=== PATIENT | female | born 1935 | race Caucasian/White ===

== ENCOUNTER 2025-01-02 09:08 | Outpatient (AMB) | payer OTHER, SELFPAY ==
--- OUTSIDE RECORDS SUMMARY | 2023-11-04 07:00 | XMS_ITS ---
Author Organization [facility] Address [address] [address] Care Team Providers Care Credit And Collections Analyst Name Role Phone MINERVA SOLARES Primary Care Provider Fritz Hernandez Unavailable [phone] REASON FOR VISIT L Eye 11/13, R [...] Active Encounters Encounter Location Date Provider Diagnosis [facility] 294 [facility] [address] [place] [address] 11/04/2023 Fritz Hernandez Age-related osteoporosis without current [...] Provider Name:SUJATHA PALMA , 03/19/2025 10:30:00 AM, [address] [place] [address], [phone], Provider Name:SUJATHA PALMA , 05/09/2025 01:00:00 PM, [address] [place] [address], [phone], Progress Notes * SUJITMeaghan ADOB: [birth year] (89 yo F)Acc No.[id number]:11/04/2023 Progress Note Patient: Meaghan DE LOS SANTOS Appointment Provider: Coni Hernandez :1935 A ge:88 Y S ex:Female Date:11/04/2023 [facility] [address] [id number] Pcp:SUJATHA PALMA Subjective: * Chief Complaints: * [...] signature of Luz Elena Hernandez PA-C on 01/02/2025 at 10:25 AM EDT Sign off status: Pending * Appointment Provider: Coni Hernandez Date: 0 11/04/2023 Generated for Marcos call/Bi/Ashley on: 1 10:25 AM EDT History and Physical Notes * HPI (History [...]
--- NOTE | 2025-01-02 09:09 | A.OFFVIS_ITS ---
Vital Signs 3 01/02/25 09:13 Height 5 ft 1 in Weight 79 lb 5.863 oz BMI 15.0 BP 120/74 Blood Pressure Location Lt brachial Position Sitting Pulse 74 Pulse Source Pulse Oximeter Pulse Oximetry (%) 97 Oxygen Delivery Method Room Air Intake Visit Reasons: Shortness of breath Double End Sewer Required: No Accompanied by: Friend Allergies No Known Allergies Allergy (Verified 01/02/25 09:23) HPI Comments Details: The patient is here for pulmonary evaluation. The patient is an 81 year woman with a history of COPD presenting with worsening progressive dyspnea. Moderate severity. Even with minimal activity she gets very short of breath. She was given a prescription for Trelegy although was too expensive. She did not see any significant improvement. She did undergo a CT scan of the chest that I did evaluate from August 2024 from [place]. I did look at the images. Explained to her that she has extensive pulmonary fibrosis. Likely progressive. No significant ground-glass opacities. 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 As far as potential exposures denies any farm exposure or any significant bird exposures. The patient used to work as a teacher and denies any significant exposure to fumes or toxins. Denies any mold exposures. Denies any history of connective tissue disease in the family. She denies any rashes or joint pains other than osteoarthritis. Therefore unclear she has any secondary causes for the interstitial lung disease. At this time she is going to undergo blood work. We did go for a walking oximetry the patient did not qualify for oxygen which is reassuring. She was visibly dyspneic. The patient uses a cane. Otherwise she walked okay. The patient will undergo blood work in addition to having her try a course of prednisone. We did talk about antifibrotic agents that may be an option for her. Will follow-up in a couple months after her blood work and to see how she response to the prednisone. The patient also was not Trelegy in his too expensive so the Fasenra generic Wixela to the pharmacy that she can use instead. She will follow-up in a couple months if she has any issues prior to that she can always call for an earlier assessment. [facility] Medical History (Updated 01/02/25 @ 21:20 by Anastacio Cordova MD) COPD (chronic obstructive pulmonary disease) Pulmonary fibrosis Social History (Updated 01/02/25 @ 09:15 by Nicole Tate CMA) Patient Tobacco Use Status: Never used Tobacco Review of Systems Const Denies fever(s) Eyes Reports no additional complaints ENT Reports dry mouth Card Denies chest pain and Reports dyspnea on exertion Resp Reports dyspnea on exertion and Denies wheezing GI Reports no additional complaints Musc Reports myalgias Skin/Breast Denies rash Neuro Reports no additional complaints Psych Reports no additional complaints Endo Reports no additional complaints Chaim/Lymph Reports no additional complaints Aller/Immun Denies wheezing Physical Exam Vital Signs: Last Vital Signs Pulse 74 01/02/25 09:13 BP 120/74 01/02/25 09:13 Pulse Ox 97 01/02/25 09:13 Oxygen Delivery Method Room Air 01/02/25 09:13 BMI result Body Mass Index 15.0 Const General: comfortable Nutritional Appearance: thin and underweight Orientation/consciousness: patient oriented x3 HEENT Head: Yes normocephalic Neck Neck: Yes supple Chest Chest palpation & inspection: normal inspection of the chest Resp Effort & Inspection: normal respiratory effort Auscultation: rales and diminished lung sounds Cardio Heart sounds: S1 normal heart sound present and S2 normal heart sound present GI Palpation (GI): Soft to palpation Skin General skin exam: no rashes or lesions noted Neuro General: patient oriented x3 Extrem General: Yes clubbing, No cyanosis and No edema Results Reviewed Results Reviewed: Assessment & Plan Assessment & Plan (1) Pulmonary fibrosis: Code(s): J84.10 - Pulmonary fibrosis, unspecified Category: Medical (2) COPD (chronic obstructive pulmonary disease): Code(s): J44.9 - Chronic obstructive pulmonary disease, unspecified Category: Medical Qualifiers: COPD type: chronic bronchitis Chronic bronchitis type: simple Q ualified Code(s): J41.0 - Simple chronic bronchitis Plan Bloodwork Start Prednisone 10mg daily change Trelegy to Wixela Consider anti fibrotic agents F/U 6-8 weeks Orders: Orders 2 Basic Metabolic Panel Today J44.9 - Chronic obstructive pulmonary disease, unspecified, J84.10 - Pulmonary fibrosis, unspecified Angiotensin Converting Enzyme Today J44.9 - Chronic obstructive pulmonary disease, unspecified, J84.10 - Pulmonary fibrosis, unspecified Hypersensitive Pneumonitis Prf Today J44.9 - Chronic obstructive pulmonary disease, unspecified, J84.10 - Pulmonary fibrosis, unspecified, R91.8 - Other nonspecific abnormal finding of lung field ROBERTA Reflex Titer and Pattern Today J44.9 - Chronic obstructive pulmonary disease, unspecified, J84.10 - Pulmonary fibrosis, unspecified Erythrocyte Sedimentation Rate Today J44.9 - Chronic obstructive pulmonary disease, unspecified, J84.10 - Pulmonary fibrosis, unspecified Sjogren's Antibodies Today J44.9 - Chronic obstructive pulmonary disease, unspecified, J84.10 - Pulmonary fibrosis, unspecified Cyclic Citrullinated Peptide Today J44.9 - Chronic obstructive pulmonary disease, unspecified, J84.10 - Pulmonary fibrosis, unspecified Complete Blood Count Auto Diff Today J44.9 - Chronic obstructive pulmonary disease, unspecified, J84.10 - Pulmonary fibrosis, unspecified ANCA Vasculitides Today J44.9 - Chronic obstructive pulmonary disease, unspecified, J84.10 - Pulmonary fibrosis, unspecified Immunoglobulin E Today J44.9 - Chronic obstructive pulmonary disease, unspecified, J84.10 - Pulmonary fibrosis, unspecified Overnight Pulse Oximetry Today J44.9 - Chronic obstructive pulmonary disease, unspecified, J84.10 - Pulmonary fibrosis, unspecified Medications: New 2 prednisone 10 mg PO DAILY 30 tabs 2RF 30 days fluticasone propion-salmeterol 250-50 mcg/dose (Wixela Inhub) 1 inh inhalation Q12H 60 ea 11RF 30 days Coding Level of Care Code New Pt Level 5 (58958) Diagnoses Pulmonary fibrosis J84.10 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
[2025-01-02 09:13] VITALS: BP 120/74; PULSE 74; O2SAT 97; BMI 15.0
--- OUTSIDE RECORDS SUMMARY | 2025-01-02 10:26 | XMS_ITS | Patient Health Record ---
Author Organization [facility] Address [address] [place] [address] Care Team Providers Care Director [employer] Name Role Phone SUJATHA PALMA Primary Care Provider Fritz Hernandez Unavailable [phone] Allergies No Known Allergies Results Component Value Reference Range Notes 25-Hydroxyvitamin D LCMS D2+ [id number] Reviewed date:05/23/2024 03:09:34 PM Interpretation: Performing Lab:[facility] [place], [facility], Phone - [phone], Director - MDJodry Notes/Report: 25-Hydroxy, Vitamin D 34 Reference Range: All Ages: Target levels 30 - 100 25-Hydroxy, Vitamin D-2 <1.0 This test was developed and its performance characteristics determined by [facility]. It has not been cleared or approved by the Food and Drug Administration. 25-Hydroxy, Vitamin D-3 34 This test was developed and its performance characteristics determined by [facility]. It has not been cleared or approved by the Food and Drug Administration. Lipid Panel-[id number] Reviewed date:05/23/2024 03:09:39 PM Interpretation: Performing Lab:[facility], [facility], [place], Phone - [phone], Director - MDJodry Notes/Report: Cholesterol, Total 210 100-199 mg/dL Triglycerides 75 0-149 mg/dL HDL Cholesterol 69 >39 mg/dL VLDL Cholesterol Fredy 13 5-40 mg/dL LDL Chol Calc ([facility]) 128 0-99 mg/dL Comp. Metabolic Panel (14)-3 [id number] Reviewed date:05/23/2024 03:09:42 PM Interpretation: Performing Lab:[facility], [address] [place] [address], Phone - [phone], Director [facility] Notes/Report: Glucose 110 70-99 mg/dL BUN 16 8-27 mg/dL Creatinine 0.61 0.57-1.00 mg/dL eGFR 86 >59 mL/min/1.73 BUN/Creatinine Ratio 26 12-28 Sodium 139 134-144 mmol/L Potassium 4.2 3.5-5.2 mmol/L Chloride 99 96-106 mmol/L Carbon Dioxide, Total 24 20-29 mmol/L Calcium 10.1 8.7-10.3 mg/dL Protein, Total 7.8 6.0-8.5 g/dL Albumin 4.4 3.7-4.7 g/dL Globulin, Total 3.4 1.5-4.5 g/dL Bilirubin, Total 0.4 0.0-1.2 mg/dL Alkaline Phosphatase 76 44-121 IU/L AST (SGOT) 15 0-40 IU/L ALT (SGPT) 9 0-32 IU/L TSH+Free [id number] Reviewed date:05/23/2024 03:09:46 PM Interpretation: Performing Lab:[facility], [address] [place] [address], Phone - [phone], Director - [facility] Notes/Report: TSH 0.513 0.450-4.500 uIU/mL T4,Free([facility]) 1.98 0.82-1.77 ng/dL Comp. Metabolic Panel (14)-3 [id number] Reviewed date:08/14/2024 11:43:27 AM Interpretation: Performing Lab:[facility], [address] [place] [address], Phone - [phone], Director - MDdry Notes/Report: Glucose 112 70-99 mg/dL BUN 18 8-27 mg/dL Creatinine 0.57 0.57-1.00 mg/dL eGFR 87 >59 mL/min/1.73 BUN/Creatinine Ratio 32 12-28 Sodium 137 134-144 mmol/L Potassium 4.9 3.5-5.2 mmol/L Chloride 96 96-106 mmol/L Carbon Dioxide, Total 20 20-29 mmol/L Calcium 9.4 8.7-10.3 mg/dL Protein, Total 7.1 6.0-8.5 g/dL Albumin 4.0 3.7-4.7 g/dL Globulin, Total 3.1 1.5-4.5 g/dL Bilirubin, Total 0.3 0.0-1.2 mg/dL Alkaline Phosphatase 68 44-121 IU/L AST (SGOT) 16 0-40 IU/L ALT (SGPT) 10 0-32 IU/L [id number] Reviewed date:08/08/2024 09:04:11 AM Interpretation: Performing Lab:[facility], [address] [facility], [place], Phone - [phone], Director - Ana Notes/Report: NT-proBNP 65 0-738 pg/mL The following cut-points have been suggested for the use of proBNP for the diagnostic evaluation of heart failure (HF) in patients with acute dyspnea: . Modality Age Optimal Cut (years) Point Diagnosis (rule in HF) <50 450 pg/mL 50 - 75 900 pg/mL >75 1800 pg/mL Exclusion (rule out HF) Age independent 300 pg/mL CBC, Platelet, No Differenti al-[id number] Reviewed date:08/08/2024 09:04:44 AM Interpretation: Performing Lab:[facility], [address] [facility], [place], Phone - [phone], Director - Ana Notes/Report: WBC 9.3 3.4-10.8 x10E3/uL RBC 4.28 3.77-5.28 x10E6/uL Hemoglobin 13.4 11.1-15.9 g/dL Hematocrit 40.5 34.0-46.6 % MCV 95 79-97 fL MCH 31.3 26.6-33.0 pg MCHC 33.1 31.5-35.7 g/dL RDW 13.4 11.7-15.4 % Platelets 279 150-450 x10E3/uL Reason For Referral Reason History of COPD, non -smoker. We have ordered PFT. Please evaluate and treat Please evaluate and treat Diagnosis 1 Shortness of breath (R06.02) Referral Organization [facility] Referring Provider First Name Fritz Referring Provider Last Name Mary Referred Provider Specialty Pulmonology General Notes Please call the navdeep ent to schedule the appointment, Vinicius Chayo 08/06/2024 04:12:19 PM > Referral Priority Routine Medications Medication SIG (Take, Route, Frequency, Duration) Notes Start Date End Date Status Famotidine 20 MG 1 tablet at bedtime as needed Orally Once a day; Duration: 90 days 01/31/2023 Active Albuterol Sulfate HFA 108 (90 Base) MCG/ACT 1 puff as needed Inhalation every 4 hrs; Duration: 30 days 08/03/2024 Active Synthroid 75 MCG TAKE 1 TABLET ONCE DAILY INTHE MORNING ON AN EMPTY STOMACH; Duration: 90 Active Trelegy Ellipta 100-62.5-25 MCG/ACT 1 puff Inhalation twice a day; Duration: 30 days 08/03/2024 Active Protonix 40 MG 1 tablet Orally Once a day 01/31/2023 Not-Taking Fish Oil 1000 MG 4 capsule Orally Onc e a day 01/31/2023 Active Estradiol 0.1 MG/GM as directed Vaginal 3 times a week 01/31/2023 Not-Taking Ergocalciferol 50 MCG (2000 UT) 1 tablet Orally Once a day 01/31/2023 Not-Taking Ketoconazole 2 % 3 times a week Externally 3 times a week; Duration: 30 days 09/18/2024 Active Immunizations Vaccine Route Administration Date Status Comme nts COVID 19 Pfizer Unknown 04/13/2020 Administered COVID 19 Pfizer Unknown 05/06/2020 Administered COVID 19 Pfizer Unknown 01/05/2021 Administered COVID Pfizer Unknown 05/14/2021 Administered COVID-19 Pfizer Unknown 11/25/2021 Administered COVID-19 Pfizer Unknown 08/20/2022 Administered Pneumococcal conjugate PCV 13 Unknown 03/16/2017 Admini stered Pneumococcal polysaccharide PPV23 Unknown 11/24/2017 Ad ministered Social History Tobacco Use: Social History Observation Description Date Details (start date - stop date) Never Smoker NA - NA Tobacco Use/Smoking Question Answer Notes Are you a nonsmoker Problems Problem Type SNOMED Code ICD Code Onset Dates Problem Status W/U Status Risk Notes Problem Hypothyroidism (74074804) Hypothyroidism, unspecified (E03.9) Active confirmed Problem Mixed hyperlipidemia (646764111) Mixed hyperlipidemia (E78.2) Active confirmed Problem Hyperlipidemia (79079244) Hyperlipidemia, unspecified (E78.5) Active confirmed Problem Generalized anxiety disorder (78066168) Generalized anxiety disorder (F41.1) Active confirmed Problem Gastro-esophageal reflux disease without esophagitis (077692410) Gastro-esophageal reflux disease without esophagitis (K21.9) Active confirmed Problem Constipation (18412330) Constipation, unspecified (K59.00) Active confirmed Problem Age-related osteoporosis (046085999) Age-related osteoporosis without current pathological fracture (M81.0) Active confirmed Problem Postmenopausal atrophic vaginitis (85773986) Postmenopausal atrophic vaginitis (N95.2) Active confirmed Problem Abnormal gait (02772631) Other abnormalities of gait and mobility (R26.89) Active confirmed Problem Progressive fibrosing interstitial lung disease (disorder) (942882267676117) 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 diseases classified elsewhere (J84.170) Active confirmed Vital Signs Heart Rate 90 /min 09/18/2024 Temperature 98.2 degrees Fahrenheit 09/18/2024 Blood pressure diastolic 72 mm Hg 09/18/2024 Oximetry 96 % 09/18/2024 Height 5'1'' in 09/18/2024 Blood pressure systolic 100 mm Hg 09/18/2024 Weight 83.4 lbs 09/18/2024 BMI 15.76 kg/m2 09/18/2024 Encounters Encounter Location Date Provider Diagnosis [address] [address] 05/08/2024 SOLARES GUL Hypothyroidism, unspecified E03.9 ; Annual physical exam Z00.00 ; Hyperlipidemia, unspecified E78.5 ; Gastro-esophageal reflux disease without esophagitis K21.9 ; Postmenopausal atrophic vaginitis N95.2 and Age-related osteoporosis without current pathological fracture M81.[address] [address] 08/03/2024 Fritz Hernandez Shortness of breath R06.[address] [address] 09/18/2024 SOLAR[facility] GUL Hypothyroidism, unspecified E03.9 ; 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 diseases classified elsewhere J84.170 ; Constipation, unspecified K59.00 ; Seborrhea capitis L21.0 ; Mixed hyperlipidemia E78.2 ; Other abnormalities of gait and mobility R26.89 and Weight loss observed on examination R63.[address] [address] 08/07/2024 Fritz Hernandez 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 diseases classified elsewhere J84.[address] [address] 08/09/2024 Ghadeer Grantloum [address] [address] 10/12/2024 SOLARES GUL Shortness of breath R06.[address] [address] 12/20/2024 SOLARES GUL Shortness of breath R06.[address] [address] 12/20/2024 SOLARES GUL Shortness of breath R06.02 Assessments Encounter Date Diagnosis (ICD Code) Assessment Notes Treatment Notes Treatment Clinical Notes Section Notes 05/08/2024 Hypothyroidism, unspecified (ICD-10 - E03.9) Meaghan is 89 years old lady with hypothyroidism, generalized anxiety disorder, esophageal spasm, osteoporosis is here for annual physical. Plan is as follows Hypothyroidism. Continue on Synthroid 75 mcg daily and check TSH/T4. GERD/esophageal spasm. Encouraged to take famotidine 20 mg 1 tablet daily and dietary modifications discussed. Generalized anxiety disorder. PHQ 9 is 0. Osteoporosis. She is not a candidate for bisphosphonates because of acid reflux. Advised to take ynxe-apm-lhhmncb vitamin D3 2000 international units and supplement diet with calcium. Atrophic vaginitis. She uses Estradiol 0.1 mg cream 3 times a week EKG is normal sinus rhythm at 72 [address]pm with no acute ST or T wave changes, no bundle branch blocks, normal intervals Screening blood work ordered. She Will have updated pneumonia and shingles vaccine. She is full code and her grand nephew Bladimir Frausto for number [phone] is her healthcare proxy. MOLST form discussed with patient 05/08/2024 Annual physical exam (ICD-10 - Z00.00) Meaghan is 89 years old lady with hypothyroidism, generalized anxiety disorder, esophageal spasm, osteoporosis is here for annual physical. Plan is as follows Hypothyroidism. Continue on Synthroid 75 mcg daily and check TSH/T4. GERD/esophageal spasm. Encouraged to take famotidine 20 mg 1 tablet daily and dietary modifications discussed. Generalized anxiety disorder. PHQ 9 is 0. Osteoporosis. She is not a candidate for bisphosphonates because of acid reflux. Advised to take hrpv-dok-dqjweuu vitamin D3 2000 international units and supplement diet with calcium. Atrophic vaginitis. She uses Estradiol 0.1 mg cream 3 times a week EKG is normal sinus rhythm at 72 bpm with no acute ST or T wave changes, no bundle branch blocks, normal intervals Screening blood work ordered. She Will have updated pneumonia and shingles vaccine. She is full code and her grand nephew Bladimir Frausto for number [phone] is her healthcare proxy. MOLST form discussed with patient 08/03/2024 Shortness of breath (ICD-10 - R06.02) Mrs Troncoso is an 89-year-old lady with GERD, hypothyroidism, VERO and osteopenia, mild esophageal spasm here for here today for COPD. Plan as follows Shortness of breath. GERD, she has done barium swallow and CAT scans in the past which did show fibrotic changes in the lying and findings were consistent with COPD. She is a non-smoker. She admits to progressive shortness of breath especially with activity and it tends to be better at rest. She also mentions that she has been experiencing a dry cough. She denies any chest pain, palpitation, orthopnea or change in her weight. We have done the walking test in the office today with oxygen level remaining the same level of 95 on heart rate fluctuating between 91 and 93 without significant changes, No concern for PE. EKG is done in the office today with heart rate of 85 bpm, sinus rhythm. No ST elevation or depression are noted. Vital signs are within normal limits in the office. Lungs are clear to auscultation bilateral. She is able to speak in full sentences. We will obtain CBC, comp, BNP for further workup and rule out any abnormalities. It did mention in the past that she does have cardiomegaly thus we will get an echo of the heart. We will get a chest x-ray to rule out any pneumonia, pleural effusion. We will also get PFTs given history of possible COPD I have also referred patient to a ladies' locker room attendant. I will also start patient on albuterol to be taken as needed maintenance inhaled corticosteroid. Possible side effects have been discussed and directions on how to use the medication has been given. General concerns have been discussed I have rendered the services for this patient under direct supervision of Dr. Palma, who did not see the patient but was available upon request 08/07/2024 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 diseases classified elsewhere (ICD-10 - J84.170) 09/18/2024 Hypothyroidism, unspecified (ICD-10 - E03.9) Mrs Troncoso is an 89-year-old lady with GERD, hypothyroidism, VERO and osteopenia, mild esophageal spasm, interstitial lung disease, COPD is here for follow-up. COPD/interstitial lung disease. Stable and oxygen saturations are 96% on room air. Continue on Trilegy 100 mcg and albuterol inhaler as needed. Hypothyroidism. Last TSH/T4 was normal and she is on levothyroxine 75 mcg daily. Weight loss. Differential is loss of muscle mass and bone mass. Advise small meals during the day and high-protein diet and stay hydrated. Impaired fasting glucose. Try to decrease carbohydrate intake and increase protein intake as discussed. Gait instability. She uses a cane to walk and no history of falls. Encouraged to do exercises at her facility. Secondly she lives by herself and we recommended that she should have a [employer] a few hours a week to help her with activities of daily living and we will arrange intake. Constipation. Stay hydrated and she can use tvla-nhz-mmqfelb Metamucil 1 tablespoon daily. Mixed hyperlipidemia. Dietary restrictions and she is not a candidate for statins. Seborrhea. She will be given prescription for ketoconazole shampoo 2-3 times a week. Screening blood work reviewed. 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 COPD/interstitial lung disease. Stable and oxygen saturations are 96% on room air. Continue on Trilegy 100 mcg and albuterol inhaler as needed. Hypothyroidism. Last TSH/T4 was normal and she is on levothyroxine 75 mcg daily. Weight loss. Differential is loss of muscle mass and bone mass. Advise small meals during the day and high-protein diet and stay hydrated. Impaired fasting glucose. Try to decrease carbohydrate intake and increase protein intake as discussed. Gait instability. She uses a cane to walk and no history of falls. Encouraged to do exercises at her facility. Secondly she lives by herself and we recommended that she should have a [employer] a few hours a week to help her with activities of daily living and we will arrange intake. Constipation. Stay hydrated and she can use tzaf-zdh-tffckea Metamucil 1 tablespoon daily. Mixed hyperlipidemia. Dietary restrictions and she is not a candidate for statins. Seborrhea. She will be given prescription for ketoconazole shampoo 2-3 times a week. Screening blood work reviewed. 09/18/2024 Constipation, unspecified (ICD-10 - K59.00) Mrs Troncoso is an 89-year-old lady with GERD, hypothyroidism, VERO and osteopenia, mild esophageal spasm, interstitial lung disease, COPD is here for follow-up. COPD/interstitial lung disease. Stable and oxygen saturations are 96% on room air. Continue on Trilegy 100 mcg and albuterol inhaler as needed. Hypothyroidism. Last TSH/T4 was normal and she is on levothyroxine 75 mcg daily. Weight loss. Differential is loss of muscle mass and bone mass. Advise small meals during the day and high-protein diet and stay hydrated. Impaired fasting glucose. Try to decrease carbohydrate intake and increase protein intake as discussed. Gait instability. She uses a cane to walk and no history of falls. Encouraged to do exercises at her facility. Secondly she lives by herself and we recommended that she should have a [employer] a few hours a week to help her with activities of daily living and we will arrange intake. Constipation. Stay hydrated and she can use crho-egt-bkqmslh Metamucil 1 tablespoon daily. Mixed hyperlipidemia. Dietary restrictions and she is not a candidate for statins. Seborrhea. She will be given prescription for ketoconazole shampoo 2-3 times a week. Screening blood work reviewed. 05/08/2024 Hyperlipidemia, unspecified (ICD-10 - E78.5) Meaghan is 89 years old lady with hypothyroidism, generalized anxiety disorder, esophageal spasm, osteoporosis is here for annual physical. Plan is as follows Hypothyroidism. Continue on Synthroid 75 mcg daily and check TSH/T4. GERD/esophageal spasm. Encouraged to take famotidine 20 mg 1 tablet daily and dietary modifications discussed. Generalized anxiety disorder. PHQ 9 is 0. Osteoporosis. She is not a candidate for bisphosphonates because of acid reflux. Advised to take xovk-rhu-osomenk vitamin D3 2000 international units and supplement diet with calcium. Atrophic vaginitis. She uses Estradiol 0.1 mg cream 3 times a week EKG is normal sinus rhythm at [address]pm with no acute [address] or T wave changes, no bundle branch blocks, normal intervals Screening blood work ordered. She Will have updated pneumonia and shingles vaccine. She is full code and her grand nephew Bladimir Frausto for number [phone] is her healthcare proxy. MOLST form discussed with patient 05/08/2024 Gastro-esophageal reflux disease without esophagitis (ICD-10 - K21.9) Meaghan is 89 years old lady with hypothyroidism, generalized anxiety disorder, esophageal spasm, osteoporosis is here for annual physical. Plan is as follows Hypothyroidism. Continue on Synthroid 75 mcg daily and check TSH/T4. GERD/esophageal spasm. Encouraged to take famotidine 20 mg 1 tablet daily and dietary modifications discussed. Generalized anxiety disorder. PHQ 9 is 0. Osteoporosis. She is not a candidate for bisphosphonates because of acid reflux. Advised to take vgwf-ufb-kkwkdkp vitamin D3 2000 international units and supplement diet with calcium. Atrophic vaginitis. She uses Estradiol 0.1 mg cream 3 times a week EKG is normal sinus rhythm at 72 bpm with no acute [address] or T wave changes, no bundle branch blocks, normal intervals Screening blood work ordered. She Will have updated pneumonia and shingles vaccine. She is full code and her grand nephew Bladimir Frausto for number [phone] is her healthcare proxy. MOLST form discussed with patient 09/18/2024 Seborrhea capitis (ICD-10 - L21.0) Mrs Troncoso is an 89-year-old lady with GERD, hypothyroidism, VERO and osteopenia, mild esophageal spasm, interstitial lung disease, COPD is here for follow-up. COPD/interstitial lung disease. Stable and oxygen saturations are 96% on room air. Continue on Trilegy 100 mcg and albuterol inhaler as needed. Hypothyroidism. Last TSH/T4 was normal and she is on levothyroxine 75 mcg daily. Weight loss. Differential is loss of muscle mass and bone mass. Advise small meals during the day and high-protein diet and stay hydrated. Impaired fasting glucose. Try to decrease carbohydrate intake and increase protein intake as discussed. Gait instability. She uses a cane to walk and no history of falls. Encouraged to do exercises at her facility. Secondly she lives by herself and we recommended that she should have a [employer] a few hours a week to help her with activities of daily living and we will arrange intake. Constipation. Stay hydrated and she can use jvuh-hsh-zmvwwri Metamucil 1 tablespoon daily. Mixed hyperlipidemia. Dietary restrictions and she is not a candidate for statins. Seborrhea. She will be given prescription for ketoconazole shampoo 2-3 times a week. Screening blood work reviewed. 05/08/2024 Postmenopausal atrophic vaginitis (ICD-10 - N95.2) Meaghan is 89 years old lady with hypothyroidism, generalized anxiety disorder, esophageal spasm, osteoporosis is here for annual physical. Plan is as follows Hypothyroidism. Continue on Synthroid 75 mcg daily and check TSH/T4. GERD/esophageal spasm. Encouraged to take famotidine 20 mg 1 tablet daily and dietary modifications discussed. Generalized anxiety disorder. PHQ 9 is 0. Osteoporosis. She is not a candidate for bisphosphonates because of acid reflux. Advised to take mnxc-shd-xurlovt vitamin D3 2000 international units and supplement diet with calcium. Atrophic vaginitis. She uses Estradiol 0.1 mg cream 3 times a week EKG is normal sinus rhythm at 72 [address]pm with no acute [address] or T wave changes, no bundle branch blocks, normal intervals Screening blood work ordered. She Will have updated pneumonia and shingles vaccine. She is full code and her grand nephew Bladimir Frausto for number [phone] is her healthcare proxy. MOLST form discussed with patient 09/18/2024 Mixed hyperlipidemia (ICD-10 - E78.2) Mrs Troncoso is an 89-year-old lady with GERD, hypothyroidism, VERO and osteopenia, mild esophageal spasm, interstitial lung disease, COPD is here for follow-up. COPD/interstitial lung disease. Stable and oxygen saturations are 96% on room air. Continue on Trilegy 100 mcg and albuterol inhaler as needed. Hypothyroidism. Last TSH/T4 was normal and she is on levothyroxine 75 mcg daily. Weight loss. Differential is loss of muscle mass and bone mass. Advise small meals during the day and high-protein diet and stay hydrated. Impaired fasting glucose. Try to decrease carbohydrate intake and increase protein intake as discussed. Gait instability. She uses a cane to walk and no history of falls. Encouraged to do exercises at her facility. Secondly she lives by herself and we recommended that she should have a [employer] a few hours a week to help her with activities of daily living and we will arrange intake. Constipation. Stay hydrated and she can use pcxi-kvu-guboxta Metamucil 1 tablespoon daily. Mixed hyperlipidemia. Dietary restrictions and she is not a candidate for statins. Seborrhea. She will be given prescription for ketoconazole shampoo 2-3 times a week. Screening blood work reviewed. 09/18/2024 Other abnormalities of gait and mobility (ICD-10 - R26.89) Mrs Troncoso is an 89-year-old lady with GERD, hypothyroidism, VERO and osteopenia, mild esophageal spasm, interstitial lung disease, COPD is here for follow-up. COPD/interstitial lung disease. Stable and oxygen saturations are 96% on room air. Continue on Trilegy 100 mcg and albuterol inhaler as needed. Hypothyroidism. Last TSH/T4 was normal and she is on levothyroxine 75 mcg daily. Weight loss. Differential is loss of muscle mass and bone mass. Advise small meals during the day and high-protein diet and stay hydrated. Impaired fasting glucose. Try to decrease carbohydrate intake and increase protein intake as discussed. Gait instability. She uses a cane to walk and no history of falls. Encouraged to do exercises at her facility. Secondly she lives by herself and we recommended that she should have a [employer] a few hours a week to help her with activities of daily living and we will arrange intake. Constipation. Stay hydrated and she can use grux-qgt-vyoxwnz Metamucil 1 tablespoon daily. Mixed hyperlipidemia. Dietary restrictions and she is not a candidate for statins. Seborrhea. She will be given prescription for ketoconazole shampoo 2-3 times a week. Screening blood work reviewed. 05/08/2024 Age-related osteoporosis without current pathological fracture (ICD-10 - M81.0) Meaghan is 89 years old lady with hypothyroidism, generalized anxiety disorder, esophageal spasm, osteoporosis is here for annual physical. Plan is as follows Hypothyroidism. Continue on Synthroid 75 mcg daily and check TSH/T4. GERD/esophageal spasm. Encouraged to take famotidine 20 mg 1 tablet daily and dietary modifications discussed. Generalized anxiety disorder. PHQ 9 is 0. Osteoporosis. She is not a candidate for bisphosphonates because of acid reflux. Advised to take bxid-pme-gbxgmmt vitamin D3 2000 international units and supplement diet with calcium. Atrophic vaginitis. She uses Estradiol 0.1 mg cream 3 times a week EKG is normal sinus rhythm at 72 bpm with no acute ST or T wave changes, no bundle branch blocks, normal intervals Screening blood work ordered. She Will have updated pneumonia and shingles vaccine. She is full code and her grand nephew Bladimir Frausto for number [phone] is her healthcare proxy. MOLST form discussed with patient 09/18/2024 Weight loss observed on examination (ICD-10 - R63.4) Mrs Troncoso is an 89-year-old lady with GERD, hypothyroidism, VERO and osteopenia, mild esophageal spasm, interstitial lung disease, COPD is here for follow-up. COPD/interstitial lung disease. Stable and oxygen saturations are 96% on room air. Continue on Trilegy 100 mcg and albuterol inhaler as needed. Hypothyroidism. Last TSH/T4 was normal and she is on levothyroxine 75 mcg daily. Weight loss. Differential is loss of muscle mass and bone mass. Advise small meals during the day and high-protein diet and stay hydrated. Impaired fasting glucose. Try to decrease carbohydrate intake and increase protein intake as discussed. Gait instability. She uses a cane to walk and no history of falls. Encouraged to do exercises at her facility. Secondly she lives by herself and we recommended that she should have a RESEARCH CENTER PARTNER a few hours a week to help her with activities of daily living and we will arrange intake. Constipation. Stay hydrated and she can use cjjp-vsg-jcogegr Metamucil 1 tablespoon daily. Mixed hyperlipidemia. Dietary restrictions and she is not a candidate for statins. Seborrhea. She will be given prescription for ketoconazole shampoo 2-3 times a week. Screening blood work reviewed. Plan Of Treatment Pending Test Test Name Order Date Echocardiogram 08/03/2024 PFTS with DLCO 08/03/2024 CT Chest WO 08/07/2024 Xray: Chest-Standard Frontal & Lat 08/03 Next Appt Details Provider Name:SOLARESREGINALDO PALMA , 03/19/2025 10:30:00 AM, [address] [place] [address], [place], [address], Provider Name:SOLARESREGINALDO PALMA , 05/09/2025 01:00:00 PM, [address] [place] [address], [place], [address], Insurance Providers Payer Name Payer Address Payer Phone Subscriber Number Group Number Insured Name Patient Relationship to Insured Coverage Start Date Coverage End Date [facility] Insurance ([facility]) [address] [place] [id number] Meaghan Troncoso Self - patient is the insured Medical (General) History Medical History History ICD Code GERD Osteopenia PMR OA Multiple joints VERO COPD Surgical History Surgery Date(Month/Year) tonsillectomy laminectomy by Dr. Lopez
--- OUTSIDE RECORDS SUMMARY | 2025-01-02 10:26 | XMS_ITS | Continuity of Care Document ---
Author Organization [facility] Address [address] [place] [address] Phone [phone] Care Team Providers Care University Relations Director Name Role Phone Kya Negrete M.D. Care Team Information Receiv er [phone] Problems Active Problems Provider Date Hypothyroidism Teodora Reyes M.D. Ons et: 12/02/2022 Osteopenia Teodora Reyes M.D. Ons et: 12/02/2022 Gastroesophageal reflux disease Teodora Harman M.D. Onset: 12/02/2022 Osteoarthritis Teodora Reyes M.D. Ons et: 12/02/2022 Spinal stenosis Teodora Reyes M.D. Ons et: 12/02/2022 Dyslipidemia Teodora Reyes M.D. Ons et: 12/02/2022 Psoriasis Teodora Reyes M.D. Ons et: 12/02/2022 Chronic depression Teodora Reyes M.D. Onset: 12/02/2022 Social History Type Date Description Comments Sex Female Sex Unknown Lives With Alone Work Status Retired ETOH Use Consumes 1 glass of wine per day Tobacco Use Start: Unknown Patient has never smoked Allergies and adverse reactions Active Allergies Criticality Reaction Severity Comments Date Aspirin Unable to assess criticality internal hemmorhag e 12/02/2022 Statins Unable to assess criticality myalgias 12/02/2022 Chloramphenicol Unable to assess criticality 12/02/2022 Medications Active Medications SIG Qnty Indications Ordering Provider Date [id number] Tablets Take 1 tablet by mouth Tue, 2 tablets on Tuesday 102tabs Teodora Reyes M.D. Calcium 5329001(600Ca) mg Tablets Take 1 tablet by mouth every other day Teodora Reyes M.D. Vitamin L974vxk (1000 Ut) Capsules Take 1 tablet by mouth every day 100caps Teodora Reyes M.D. Fish [id number] Capsules 1 by mouth once a day Teodora Reyes M.D. Estradiol0.1mg/GM Cream 2 x week Teodora Reyes M.D. Vital Signs Date Vital Result Comment 12/02/2022 11:56am BP Systolic 144 mmHg BP Diastolic 80 mmHg Results Test Acquired Date Facility Test Result H/L Range Note TSH With Reflex To FT4 12/02/2022 [facility] TSH With Reflex To FT4 4.54 uIU/mL High (0.4-4.2 ) Free T4 12/02/2022 [facility] Free T4 1.34 ng/dL (0.70-1. 80) Complete Abc With Diff 02/18/2022 [facility] WBC 7.7 K/MM3 (4.0-11. 0) RBC 4.37 M/MM3 (4.20-5. 40) HGB 13.4 GM/DL (11.7-15 .5) HCT 42.1 % (35.7-45 .8) MCV 96.3 FL (80.0-10 0.0) MCH 30.7 pg (27.0-34 .0) MCHC 31.8 g/dL Low (33.0-37 .0) PLT 290 K/MM3 (150-460 ) RDW-SD 47.1 FL High (<47.0) MPV 9.9 FL (9.4-12. 4) Automated NRBC 0.0 #/100WBC' S Abs. NRBC 0.0 K/MM3 Neut # 5.3 K/MM3 (1.3-7.0 ) Lymph # 1.7 K/MM3 (0.8-3.1 ) Whatcom# 0.5 K/MM3 (0.4-0.9 ) Eo # 0.1 K/MM3 (0.0-0.4 ) Baso # 0.1 K/MM3 (0.0-0.1 ) Abs. Imm Gran 0.0 K/MM3 Neut 68.5 % (44-76) Lymph 22.2 % (15-43) Monocyte 7.0 % (4.5-10. 5) Eo 1.2 % (0-6) Baso 0.8 % (0-2) Imm Gran 0.3 % Sedimentation Rate,Automated 02/18/2022 [facility] Sedimentation Rate,Automated 22 MM/HR High (0-20) Comprehensive Metabolic Panl 02/18/2022 [facility] Glucose 94 mg/dL (70-99) BUN 14 mg/dL (8-23) Creatinine 0.6 mg/dL (0.5-1.0 ) Sodium 141 mmol/L (133-145 ) Potassium 4.2 mmol/L (3.6-5.2 ) Chloride 103 mmol/L (98-107) Bicarbonate 28 mmol/L (22-29) Anion Gap 10 (4-17) Albumin 4.6 GM/DL (3.4-4.8 ) Calcium 9.8 mg/dL (8.6-10. 5) Bilirubin,Total 0.2 mg/dL (0-1.2 ) Total Protein 7.6 GM/DL (6.2-8.2 ) Ag Ratio 1.5 Ast 18 U/L (0-32) Alk Phos 69 U/L (35-104) Alt 12 U/L (0-33) Estimated GFR Creatinine 87 ML/MIN/1. 73M2 1 C-Reactive Protein 02/18/2022 [facility] C-Reactive Protein 0.3 mg/dL (0-0.5) Thyroid Panel 02/18/2022 [facility] Free T4 1.51 ng/dL (0.70-1. 80) TSH 1.86 uIU/mL (0.4-4.2 ) 25Oh Vitamin D 02/18/2022 [facility] 25Oh Vitamin D 43.1 NG/ML (20-50) 1 Creatinine based est imated glomerular filtration (eGFR) in adults is calculated using the National Kidney Foundation recommended 2020 CKD-EPI equation. Estimates GFR from serum creatinine, age and sex. Procedures Date Code Description Status 12/02/2022 58582 Collection Of Venous Blood B y Venipuncture Completed 09/04/2021 98868 Collection Of Capillary Bloo d Specimen Completed Medical Devices Description No Information Available Encounters Type Date Location Provider Dx Diagnosis Office Visit 12/02/2022 10:15a Main Office Teodora Reyes M.D. E03.9 Hypothyroidism, unspecified Assessments Date Code Description Provider 12/02/2022 E03.9 Hypothyroidism, unspecified Teodora Reyes M.D. Plan of Treatment No Information Available Functional Status Description No Information Available Mental Status Description No Information Available Referrals Description No Information Available
== END 2025-01-02 09:55 | disposition home or self-care (01) ==
LOC: HO.HPS 09:09
PROVIDERS: Visit Provider Hospitalist
DX: J84.10 Pulmonary fibrosis, unspecified (principal); J41.0 Simple chronic bronchitis
CPT/HCPCS: 99205

== ENCOUNTER 2025-01-02 09:08 | Outpatient (REF) | payer OTHER, SELFPAY ==
[2025-01-02 10:27] LABS: MANUAL DIFF FLAG NO
[2025-01-02 10:46] LABS: Hematocrit 41.8 % (37.0-47.0); Hemoglobin 13.6 g/dl (12.0-16.0); Imm Gran Abs Auto 0.02 X10*3/uL (0.00-0.03); Imm Gran Pct Auto 0.2 % (0.0-0.4); Lymphocytes Absolute Auto 1.0 X10*3/uL (1.2-4.9); Mean Corpuscular HGB Conc 32.5 g/dl (31.0-35.0); Mean Corpuscular Hemoglobin 30.9 pg (27.0-33.0); Mean Corpuscular Volume 95.0 fL (80.0-98.0); NRBC Abs Auto 0.000 X10*3/uL (0.0-0.012); NRBC Pct Auto 0.0 /100WBC (0.0-0.2); Platelet Count 313 X10*3/uL (160-400); Red Blood Count 4.40 X10*6/uL (4.20-5.50); White Blood Count 8.3 X10*3/uL (4.8-10.8)
[2025-01-02 11:08] LABS: Anion Gap 10 (12-20); Blood Urea Nitrogen 17 mg/dL (9-16); Calcium 9.7 mg/dL (8.4-10.2); Carbon Dioxide 30 mmol/L (22-29); Chloride 101 mmol/L (96-108); Estimated Glomerular Filt Rate > 60; Potassium 4.0 mmol/L (3.3-5.1); Sodium 137 mmol/L (135-145)
[2025-01-04 09:37] LABS: Antibody to SS-A Antigen <1.0 NEG AI (<1.0 NEG); Antibody to SS-B Antigen 1.1 POS AI (<1.0 NEG); Proteinase 3 PR3 Antibodies <1.0 AI
[2025-01-10 13:18] LABS: Anti Nuclear Antibody Screen POSITIVE (NEGATIVE); Anti Nuclear Antibody Titer 1:40 titer
[2025-01-10 14:59] LABS: Asperg fumigatus Precip Abs POSITIVE (NEGATIVE); Micropoly faeni Abs NEGATIVE (NEGATIVE); Saccharo pora viridis Abs NEGATIVE (NEGATIVE); Thermo candidus Abs NEGATIVE (NEGATIVE)
== END 2025-01-02 09:09 | disposition home or self-care (01) ==
LOC: HO.LAB 09:08
PROVIDERS: Visit Provider Hospitalist
DX: J84.10 Pulmonary fibrosis, unspecified (principal); J44.9 Chronic obstructive pulmonary disease, unspecified; R91.8 Other nonspecific abnormal finding of lung field
CPT/HCPCS: 36415; 80048; 82164; 82785; 85025; 85652; 86021; 86038; 86039; 86200; 86235; 86331; 86606; 86609

== ENCOUNTER 2025-03-01 13:50 | Outpatient (AMB) | payer OTHER, SELFPAY ==
--- OUTSIDE RECORDS SUMMARY | 2023-11-04 06:00 | XMS_ITS ---
Author Organization [facility] Address [address] [address] Care Team Providers Care Alum Plant Supervisor Name Role Phone MINERVA SOLARES Primary Care Provider [phone] Fritz Hernandez Unavailable [phone] REASON FOR VISIT L Eye 11/13, R eye 11/22 Medications Medication SIG (Take, Route, Frequency, Duration) Notes Start Date End Date Status Fish Oil 1000 MG 4 capsule Orally Onc e a day 01/31/2023 Active Famotidine 20 MG 1 tablet at bedtime as needed Orally Once a day 01/31/2023 Active Protonix 40 MG 1 tablet Orally Once a day 01/31/2023 Active Synthroid 75 MCG 1 tablet in the morn ing on an empty stomach Orally Once a day 01/31/2023 Active Ergocalciferol 50 MCG (2000 UT) 1 tablet Orally Once a day 01/31/2023 Active Estradiol 0.1 MG/GM as directed Vaginal 3 times a week 01/31/2023 Active Encounters Encounter Location Date Provider Diagnosis [facility] [address] [facility] [address] [place] [address] 11/04/2023 Fritz Hernandez Age-related osteoporosis without current pathological fracture M81.0 ; Hypothyroidism, unspecified E03.9 ; Generalized anxiety disorder F41.1 and Encounter for general adult medical examination without abnormal findings Z00.00 Assessments Encounter Date Diagnosis (ICD Code) Assessment Notes Treatment Notes Treatment Clinical Notes Section Notes 11/04/2023 Age-related osteoporosis without current pathological fracture (ICD-10 - M81.0) Mrs Troncoso is an 87-year-old lady with GERD and osteopenia here for pre-op clearnace. She see Dr. Liu for GERD and esophageal spasms and she follows up with Dr. Teodora Peters for hypothyroidism and osteopenia. Plan is as follows: here for preop clearance. Plan is as follows: Cardiac assessment. Patient can easily do 4 METS. Blood pressure and exam is within normal limits. Pulmonary assessment. Lung exam is normal. Procedure under local block. No further Intervention NPO on the day of surgery except for he can take ------ in the morning. Rest of the medications after procedure. It is avascular surgery with no bleeding involved. Low risk procedure in a low risk patient. No contraindications for the procedure at this point in time. Screening blood work before next appointment. General health concerns discussed with patient. 11/04/2023 Hypothyroidism, unspecified (ICD-10 - E03.9) Mrs Troncoso is an 87-year-old lady with GERD and osteopenia here for pre-op clearnace. She see Dr. Liu for GERD and esophageal spasms and she follows up with Dr. Teodora Peters for hypothyroidism and osteopenia. Plan is as follows: here for preop clearance. Plan is as follows: Cardiac assessment. Patient can easily do 4 METS. Blood pressure and exam is within normal limits. Pulmonary assessment. Lung exam is normal. Procedure under local block. No further Intervention NPO on the day of surgery except for he can take ------ in the morning. Rest of the medications after procedure. It is avascular surgery with no bleeding involved. Low risk procedure in a low risk patient. No contraindications for the procedure at this point in time. Screening blood work before next appointment. General health concerns discussed with patient. 11/04/2023 Generalized anxiety disorder (ICD-10 - F41.1) Mrs Troncoso is an 87-year-old lady with GERD and osteopenia here for pre-op clearnace. She see Dr. Liu for GERD and esophageal spasms and she follows up with Dr. Teodora Peters for hypothyroidism and osteopenia. Plan is as follows: here for preop clearance. Plan is as follows: Cardiac assessment. Patient can easily do 4 METS. Blood pressure and exam is within normal limits. Pulmonary assessment. Lung exam is normal. Procedure under local block. No further Intervention NPO on the day of surgery except for he can take ------ in the morning. Rest of the medications after procedure. It is avascular surgery with no bleeding involved. Low risk procedure in a low risk patient. No contraindications for the procedure at this point in time. Screening blood work before next appointment. General health concerns discussed with patient. 11/04/2023 Encounter for general adult medical examination without abnormal findings (ICD-10 - Z00.00) Mrs Troncoso is an 87-year-old lady with GERD and osteopenia here for pre-op clearnace. She see Dr. Liu for GERD and esophageal spasms and she follows up with Dr. Teodora Peters for hypothyroidism and osteopenia. Plan is as follows: here for preop clearance. Plan is as follows: Cardiac assessment. Patient can easily do 4 METS. Blood pressure and exam is within normal limits. Pulmonary assessment. Lung exam is normal. Procedure under local block. No further Intervention NPO on the day of surgery except for he can take ------ in the morning. Rest of the medications after procedure. It is avascular surgery with no bleeding involved. Low risk procedure in a low risk patient. No contraindications for the procedure at this point in time. Screening blood work before next appointment. General health concerns discussed with patient. Plan Of Treatment Next Appt Details Provider Name:SUJATHA PALMA , 03/19/2025 10:30:00 AM, [address] [place] [address], [phone], Provider Name:SUJATHA PALMA , 05/09/2025 01:00:00 PM, [address] [place] [address], [phone], Progress Notes * SUJITMeaghan ADOB: [birth year] (89 yo F)Acc No.[id number]:11/04/2023 Progress Note Patient: Meaghan DE LOS SANTOS Appointment Provider: Coni Hernandez :1935 A ge:88 Y S ex:Female Date:11/04/2023 [facility] [address] [id number] Pcp:SUJATHA PALMA Subjective: * Chief Complaints: * 1 . L Eye 11/13, R eye 11/22. * HPI: I nternal Medicine: Mrs Troncoso is an 87-year-old lady with GERD, hypothyroidism, VERO and osteopenia, mild esophageal spasm here for here today for preop clearance for cataract surgery. The surgery is on Dr.----at . Denies CP, SOB, ROBERTSON. He is physically active. He can easily do 4 METS. Blood pressure is well controlled. His appetite is good. He does not appear anxious or depressed. No GI or symptoms. He denies any other active issues or concerns.he denies any other active issues or concerns. * Medical History: * Medications: T aking Estradiol 0.1 MG/GM Cream as directed Vaginal 3 times a week , Taking Protonix 40 MG Tablet Delayed Release 1 tablet Orally Once a day , Taking Famotidine 20 MG Tablet 1 tablet at bedtime as needed Orally Once a day , Taking Fish Oil 1000 MG Capsule 4 capsule Orally Once a day , Taking Ergocalciferol 50 MCG (2000 UT) Tablet 1 tablet Orally Once a day , Taking Synthroid 75 MCG Tablet 1 tablet in the morning on an empty stomach Orally Once a day Objective: * Vitals: Assessment: * Assessment: 1. A ge-related osteoporosis without current pathological fracture - M81.0 2 .?Hypothyroidism, unspecified - E03.9 3 . G eneralized anxiety disorder - F41.1 4 . E ncounter for general adult medical examination without abnormal findings - Z00.00 Mrs Troncoso is an 87-year-o ld lady with GERD and osteopenia here for pre-op clearnace. She see Dr. iLu for GERD and esophageal spasms and she follows up with Dr. Teodora Peters for hypothyroidism and osteopenia. Plan is as follows: here for preop clearance. Plan is as follows: Cardiac assessment. Patient can easily do 4 METS. Blood pressure and exam is within normal limits. Pulmonary assessment. Lung exam is normal. Procedure under local block. No further Intervention NPO on the day of surgery except for he can take ------ in the morning. Rest of the medications after procedure. It is avascular surgery with no bleeding involved. Low risk procedure in a low risk patient. No contraindications for the procedure at this point in time. Screening blood work before next appointment. General health concerns discussed with patient. Plan: * Treatment: * Images: * Electronic signature of Luz Elena Hernandez PA-C on 03/01/2025 at 01:54 PM EST Sign off status: Pending * Appointment Provider: Coni Hernandez Date: 0 11/04/2023 Generated for Marcos call/Bi/Ashley on: 1 05/02/2024 01:54 PM EST History and Physical Notes * HPI (History of Present Illness) Category Sub-Category Detail Notes Category Not es Internal Medicine Mrs Troncoso is an 87-year-old lady with GERD, hypothyroidism, VERO and osteopenia, mild esophageal spasm here for here today for preop clearance for cataract surgery. The surgery is on Dr.----at . Denies CP, SOB, ROBERTSON. He is physically active. He can easily do 4 METS. Blood pressure is well controlled. His appetite is good. He does not appear anxious or depressed. No GI or symptoms. He denies any other active issues or concerns.he denies any other active issues or concerns.
--- OUTSIDE RECORDS SUMMARY | 2025-03-01 13:54 | XMS_ITS | Continuity of Care Document ---
Author Organization [facility] Address [address] [place] [address] Phone [phone] Care Team Providers Care Heat Plant Specialist Name Role Phone Kya Negrete M.D. Care Team Information Receiv er [phone] Problems Active Problems Provider Date Hypothyroidism Teodora [...] Medications SIG Qnty Indications Ordering Provider Date Bqahqqjfn61gjy Tablets Take 1 tablet by mouth Tue, 2 tablets on Tuesday 102tabs Teodora Reyes M.D. Calcium 5843790(600Ca) mg Tablets Take 1 tablet by mouth every other day Teodora Reyes M.D. Vitamin Y244emt (1000 Ut) Capsules Take 1 tablet by mouth every day 100caps Teodora Reyes M.D. Fish [id number] Capsules 1 by mouth once a day Teodora Reyes M.D. Estradiol0.1mg/GM Cream 2 x week Teodora Reyes M.D. Vital Signs Date Vital Result Comment 12/02/2022 11:56am BP Systolic 144 mmHg BP Diastolic 80 mmHg Results Test Acquired Date Facility Test Result H/L Range Note TSH With Reflex To FT4 12/02/2022 [facility] TSH With Reflex To FT4 4.54 uIU/mL High (0.4-4.2 ) Free T4 12/02/2022 [facility] Free T4 1.34 ng/dL (0.70-1. 80) Complete Abc With Diff 02/18/2022 [facility] WBC 7.7 K/MM3 (4.0-11. [...] ) Lymph # 1.7 K/MM3 (0.8-3.1 ) Page# 0.5 K/MM3 (0.4-0.9 ) Eo # 0.1 K/MM3 (0.0-0.4 ) Baso # 0.1 K/MM3 (0.0-0.1 ) Abs. Imm Gran 0.0 K/MM3 Neut 68.5 % (44-76) Lymph 22.2 % (15-43) Monocyte 7.0 % (4.5-10. 5) Eo 1.2 % (0-6) Baso 0.8 % (0-2) Imm Gran 0.3 % Sedimentation Rate,Automated 02/18/2022 [facility] Sedimentation Rate,Automated 22 MM/HR High (0-20) Comprehensive Metabolic Panl 02/18/2022 [facility] Glucose 94 mg/dL (70-99) [...] 87 ML/MIN/1. 73M2 1 C-Reactive Protein 02/18/2022 [facility] C-Reactive Protein 0.3 mg/dL (0-0.5) Thyroid Panel 02/18/2022 [facility] Free T4 1.51 ng/dL (0.70-1. 80) TSH 1.86 uIU/mL (0.4-4.2 ) 25Oh Vitamin D 02/18/2022 [facility] 25Oh Vitamin D 43.1 NG/ML (20-50) 1 Creatinine based est imated glomerular filtration (eGFR) in adults is calculated using the National Kidney Foundation recommended 2020 CKD-EPI equation. Estimates GFR from serum creatinine, age and sex. Procedures Date Code Description Status 12/02/2022 66223 Collection Of Venous Blood B y Venipuncture Completed 09/04/2021 53621 Collection Of Capillary Bloo d Specimen Completed [...]
--- OUTSIDE RECORDS SUMMARY | 2025-03-01 13:54 | XMS_ITS | Patient Health Record ---
Author Organization [facility] Address [address] [place] [address] Care Team Providers Care Assurance Manager Name Role Phone SUJATHA PALMA Primary Care Provider [phone] Fritz Hernandez Unavailable [phone] Allergies No Known Allergies Results Component Value Reference Range Notes 25-Hydroxyvitamin D LCMS D2+ [id number] Reviewed date:05/23/2024 03:09:34 PM Interpretation: Performing Lab:[facility] [place], [place] [facility], Phone - [phone], Director - MDJodry Notes/Report: 25-Hydroxy, Vitamin D 34 Reference Range: All Ages: Target levels 30 - 100 25-Hydroxy, Vitamin D-2 <1.0 This test was developed and its performance characteristics determined by [facility]. It has not been cleared or approved by the Food and Drug Administration. 25-Hydroxy, Vitamin D-3 34 This test was developed and its performance characteristics determined by [facility]. It has not been cleared or approved by the Food and Drug Administration. Lipid Panel-[id number] Reviewed date:05/23/2024 03:09:39 PM Interpretation: Performing Lab:[facility], [facility] [place] [facility], [place], Phone - [phone], Director - MDJodry Notes/Report: Cholesterol, Total 210 100-199 mg/dL Triglycerides 75 0-149 mg/dL HDL Cholesterol 69 >39 mg/dL VLDL Cholesterol Fredy 13 5-40 mg/dL LDL Chol Calc (NIH) 128 0-99 mg/dL Comp. Metabolic Panel (14)-3 73144 Reviewed date:05/23/2024 03:09:42 PM Interpretation: Performing Lab:[facility], [address] [place] [address], Phone - [phone], Director [facility] Notes/Report: Glucose 110 70-99 mg/dL BUN 16 [...] IU/L ALT (SGPT) 9 0-32 IU/L TSH+Free [id number] Reviewed date:05/23/2024 03:09:46 PM Interpretation: Performing Lab:[facility], [address] [place] [address], Phone - [phone], Director [facility] Notes/Report: TSH 0.513 0.450-4.500 uIU/mL T4,Free(Direct) 1.98 0.82-1.77 ng/dL Comp. Metabolic Panel (14)-3 57827 Reviewed date:08/14/2024 11:43:27 AM Interpretation: Performing Lab:[facility], [address] [place] [address], Phone - [phone], Director - MDdry Notes/Report: Glucose 112 70-99 [...] 0-40 IU/L ALT (SGPT) 10 0-32 IU/L RD-flnOSX-[id number] Reviewed date:08/08/2024 09:04:11 AM Interpretation: Performing Lab:[facility], [address] [facility], [place], Phone - [phone], Director - Ana Notes/Report: NT-proBNP 65 0-738 [...] independent 300 pg/mL CBC, Platelet, No Differenti al-[id number] Reviewed date:08/08/2024 09:04:44 AM Interpretation: Performing Lab:[facility], [address] [facility], [place], Phone - [phone], Director - Ana Notes/Report: WBC 9.3 3.4-10.8 [...] 1 Shortness of breath (R06.02) Referral Organization [facility] Referring Provider First Name Fritz Referring [...] Status W/U Status Risk Notes Problem Hypothyroidism (23552376) Hypothyroidism, unspecified (E03.9) Active confirmed Problem Mixed hyperlipidemia (457394167) Mixed hyperlipidemia (E78.2) Active confirmed Problem Hyperlipidemia (64676836) Hyperlipidemia, unspecified (E78.5) Active confirmed Problem Generalized anxiety disorder (69899592) Generalized anxiety disorder (F41.1) Active confirmed Problem Gastro-esophageal reflux disease without esophagitis (387626385) Gastro-esophageal reflux disease without esophagitis (K21.9) Active confirmed Problem Constipation (37088532) Constipation, unspecified (K59.00) Active confirmed Problem Age-related osteoporosis (168890194) Age-related osteoporosis without current pathological fracture (M81.0) Active confirmed Problem Postmenopausal atrophic vaginitis (23839924) Postmenopausal atrophic vaginitis (N95.2) Active confirmed Problem Abnormal gait (30365299) Other abnormalities of gait and mobility (R26.89) Active confirmed Problem Progressive fibrosing interstitial lung disease (disorder) (072648351913802) 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 diseases classified elsewhere (J84.170) Active confirmed Vital Signs Heart Rate 90 /min 09/18/2024 Temperature 98.2 degrees Fahrenheit 09/18/2024 Oximetry 96 % 09/18/2024 Blood pressure diastolic 72 mm Hg 09/18/2024 Height 5'1'' in 09/18/2024 Blood pressure systolic 100 mm Hg 09/18/2024 Weight 83.4 lbs 09/18/2024 BMI 15.76 kg/m2 09/18/2024 Encounters Encounter Location Date Provider Diagnosis [address] [address] 05/08/2024 SOLARES GUL Hypothyroidism, unspecified E03.9 ; Annual physical exam Z00.00 ; Hyperlipidemia, unspecified E78.5 ; Gastro-esophageal reflux disease without esophagitis K21.9 ; Postmenopausal atrophic vaginitis N95.2 and Age-related osteoporosis without current pathological fracture M81.[address] [address] 08/03/2024 Fritz Hernandez Shortness of breath R06.[address] [address] 09/18/2024 SOLARES GUL Hypothyroidism, unspecified E03.9 ; 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 diseases classified elsewhere J84.170 ; Constipation, unspecified K59.00 ; Seborrhea capitis L21.0 ; Mixed hyperlipidemia E78.2 ; Other abnormalities of gait and mobility R26.89 and Weight loss observed on examination R63.[address] [address] 08/07/2024 Fritz Hernandez 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 diseases classified elsewhere J84.[address] [address] 08/09/2024 Ghadeer Grantloum [address] [address] 10/12/2024 SOLARES GUL Shortness of breath R06.[address] [address] 12/20/2024 SOLARES GUL Shortness of breath R06.[address] [address] 12/20/2024 SOLARES GUL Shortness of breath R06.02 [...] because of acid reflux. Advised to take wmxj-luq-cwizcix vitamin D3 2000 international units and supplement [...] her grand nephew Bladimir Frausto for number [phone] is her healthcare proxy. MOLST form discussed [...] because of acid reflux. Advised to take pgua-zws-udjtqrf vitamin D3 2000 international units and supplement [...] her grand nephew Bladimir Frausto for number [phone] is her healthcare proxy. MOLST form discussed [...] I have also referred patient to a director of primary care. I will also start patient on albuterol [...] we recommended that she should have a WINDER HELPER a few hours a week to help her with activities of daily living and we will arrange intake. Constipation. Stay hydrated and she can use rgwm-noc-qrfvkxc Metamucil 1 tablespoon daily. Mixed hyperlipidemia. Dietary restrictions and she is not a candidate for statins. Seborrhea. She will be given prescription for ketoconazole shampoo 2-3 times a week. Screening blood work reviewed. 09/18/2024 Interstitial lung disease with progressive fibrotic [...] we recommended that she should have a WINDER HELPER a few hours a week to help her with activities of daily living and we will arrange intake. Constipation. Stay hydrated and she can use uwkq-qma-kxrhzos Metamucil 1 tablespoon daily. Mixed hyperlipidemia. Dietary restrictions and she is not a candidate for statins. Seborrhea. She will be given prescription for ketoconazole shampoo 2-3 times a week. Screening blood work reviewed. 10/12/2024 Shortness of breath (ICD-10 - R06.02) 12/20/2024 Shortness of breath (ICD-10 - R06.02) 12/20/2024 Shortness of breath (ICD-10 - R06.02) 09/18/2024 Constipation, unspecified (ICD-10 - K59.00) Mrs [...] we recommended that she should have a WINDER HELPER a few hours a week to help her with activities of daily living and we will arrange intake. Constipation. Stay hydrated and she can use rwgd-jsi-ugkldoy Metamucil 1 tablespoon daily. Mixed hyperlipidemia. Dietary [...] because of acid reflux. Advised to take ekgp-vri-iqtahsj vitamin D3 2000 international units and supplement [...] her grand nephew Bladimir Frausto for number [phone] is her healthcare proxy. MOLST form discussed [...] because of acid reflux. Advised to take ftjm-nfx-tejoohe vitamin D3 2000 international units and supplement [...] her grand nephew Bladimir Frausto for number [phone] is her healthcare proxy. MOLST form discussed [...] we recommended that she should have a WINDER HELPER a few hours a week to help her with activities of daily living and we will arrange intake. Constipation. Stay hydrated and she can use njny-omh-qxchuym Metamucil 1 tablespoon daily. Mixed hyperlipidemia. Dietary [...] because of acid reflux. Advised to take irgu-pvp-liykswh vitamin D3 2000 international units and supplement [...] her grand nephew Bladimir Frausto for number [phone] is her healthcare proxy. MOLST form discussed [...] we recommended that she should have a WINDER HELPER a few hours a week to help her with activities of daily living and we will arrange intake. Constipation. Stay hydrated and she can use imxi-fft-cqnzmth Metamucil 1 tablespoon daily. Mixed hyperlipidemia. Dietary [...] because of acid reflux. Advised to take tcqf-onz-tvnxxmn vitamin D3 2000 international units and supplement [...] her grand nephew Bladimir Frausto for number [phone] is her healthcare proxy. MOLST form discussed with patient 09/18/2024 Other abnormalities of gait and mobility [...] we recommended that she should have a WINDER HELPER a few hours a week to help her with activities of daily living and we will arrange intake. Constipation. Stay hydrated and she can use oahi-dzn-diygcdt Metamucil 1 tablespoon daily. Mixed hyperlipidemia. Dietary restrictions and she is not a candidate for statins. Seborrhea. She will be given prescription for ketoconazole shampoo 2-3 times a week. Screening blood work reviewed. 09/18/2024 Weight loss observed on examination (ICD-10 [...] we recommended that she should have a WINDER HELPER a few hours a week to help her with activities of daily living and we will arrange intake. Constipation. Stay hydrated and she can use dsnq-hih-thrmoac Metamucil 1 tablespoon daily. Mixed hyperlipidemia. Dietary [...] Provider Name:SOLARESREGINALDO PALMA , 03/19/2025 10:30:00 AM, [address] [place] [address], [place], [address], Provider Name:SOLARESREGINALDO PALMA , 05/09/2025 01:00:00 PM, [address] [place] [address], [place], [address], Insurance Providers Payer Name Payer Address Payer Phone Subscriber Number Group Number Insured Name Patient Relationship to Insured Coverage Start Date Coverage End Date [facility] [address] [place] [address] [phone] [id number] Meaghan Troncoso Self - patient is the insured Medical (General) History Medical History History ICD Code GERD Osteopenia PMR OA Multiple joints VERO COPD Surgical History Surgery Date(Month/Year) tonsillectomy laminectomy by Dr. Lopez
[2025-03-01 14:08] VITALS: BP 108/64; PULSE 80; O2SAT 97; BMI 15.2
--- NOTE | 2025-03-01 14:08 | MHC.OFFVIS ---
Vital Signs 03/01/25 14:08 Height 5 ft 1 in Weight 80 lb 7.5 oz BMI 15.2 BP 108/64 Blood Pressure Location Lt brachial Position Sitting Pulse 80 Pulse Source Pulse Oximeter Pulse Oximetry (%) 97 Oxygen Delivery Method Room Air Intake Visit Reasons: Shortness of breath Invoice Control Clerk Required: No Director Field Services: Director Field Services offered & declined Accompanied by: Self / Same As Patient Allergies No Known Allergies Allergy (Verified 03/01/25 14:11) HPI Comments Details: The patient is an 89 year woman with a history of COPD presenting with worsening progressive dyspnea. Moderate severity. Even with minimal activity she gets very short of breath. She was given a prescription for Trelegy although was too expensive. She did not see any significant improvement. She did undergo a CT scan of the chest that I did evaluate from August 2024 from [place]. I did look at the images. Explained to her that she has extensive pulmonary fibrosis. Likely progressive. No significant ground-glass opacities. 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 As far as potential exposures denies any farm exposure or any significant bird exposures. The patient used to work as a teacher and denies any significant exposure to fumes or toxins. Denies any mold exposures. Denies any history of connective tissue disease in the family. She denies any rashes or joint pains other than osteoarthritis. Therefore unclear she has any secondary causes for the interstitial lung disease. At this time she is going to undergo blood work. We did go for a walking oximetry the patient did not qualify for oxygen which is reassuring. She was visibly dyspneic. The patient uses a cane. Otherwise she walked okay. The patient will undergo blood work in addition to having her try a course of prednisone. We did talk about antifibrotic agents that may be an option for her. Will follow-up in a couple months after her blood work and to see how she response to the prednisone. The patient also was not Trelegy in his too expensive so the Fasenra generic Wixela to the pharmacy that she can use instead. She will follow-up in a couple months if she has any issues prior to that she can always call for an earlier assessment. 03/01/2025 the patient is here for pulmonary follow-up visit. She is here with a friend. Seems to be more forgetful today. She did not remember seeing me the last time. In some of the medications that have center she is not sure she is taking appropriately. We did review her blood work. She does have positive ROBERTA although low titers and her CCS be as positive for Sjogren's disease. 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 Therefore will going to go ahead and start her on Plaquenil. She knows to monitor any visual changes and also she will continue the prednisone 10 mg daily. She will have a chest x-ray prior to the next visit in 3 months. In the meantime the friend that is with her concerned about the patient has health. She lives by herself and she still drives. She has been more forgetful and feels like she needs help with the activities of daily living. I will reach out to her primary care doctor to see if any of these issues can be addressed. [facility] Medical History (Updated 03/03/25 @ 21:28 by Anastacio Cordova MD) Sjogren's disease Impaired memory COPD (chronic obstructive pulmonary disease) Pulmonary fibrosis Social History Patient Tobacco Use Status: Never used Tobacco Review of Systems Const Denies fever(s) and Reports weight loss Eyes Reports no additional complaints ENT Reports dry mouth Card Denies chest pain and Reports dyspnea on exertion Resp Reports dyspnea on exertion and Denies wheezing GI Reports no additional complaints Musc Reports myalgias Skin/Breast Denies rash Neuro Reports no additional complaints and Reports memory loss Psych Reports no additional complaints and Reports memory loss Endo Reports no additional complaints Chaim/Lymph Reports no additional complaints Aller/Immun Denies wheezing Physical Exam Vital Signs: Last Vital Signs Pulse 80 03/01/25 14:08 BP 108/64 03/01/25 14:08 Pulse Ox 97 03/01/25 14:08 Oxygen Delivery Method Room Air 03/01/25 14:08 BMI result Body Mass Index 15.2 Const General: comfortable Nutritional Appearance: thin and underweight Orientation/consciousness: patient oriented x3 HEENT Head: Yes normocephalic Neck Neck: Yes supple Chest Chest palpation & inspection: normal inspection of the chest Resp Effort & Inspection: normal respiratory effort Auscultation: rales and diminished lung sounds Cardio Heart sounds: S1 normal heart sound present and S2 normal heart sound present GI Palpation (GI): Soft to palpation Skin General skin exam: no rashes or lesions noted Neuro General: patient oriented x3 Extrem General: Yes clubbing, No cyanosis and No edema Assessment & Plan Assessment & Plan (1) Pulmonary fibrosis: Code(s): J84.10 - Pulmonary fibrosis, unspecified Category: Medical (2) COPD (chronic obstructive pulmonary disease): Code(s): J44.9 - Chronic obstructive pulmonary disease, unspecified Category: Medical Qualifiers: COPD type: chronic bronchitis Chronic bronchitis type: simple Qualified Code(s): J41.0 - Simple chronic bronchitis (3) Impaired memory: Code(s): R41.3 - Other amnesia Category: Medical (4) Sjogren's disease: Code(s): M35.00 - Sjogren syndrome, unspecified Category: Medical Qualifiers: Sjogren organ or system involvement: lung involvement Qualified Code(s): M35.02 - Sjogren syndrome with lung involvement Plan start Plaquenil, monitor for visual changes continue Prednisone 10mg daily should have a Rheumatology referral continue Wixela Consider anti fibrotic agents if worsens CXR prior to next visit May need Home safety assessment, ?med adherence, Likely would benefit from VNA services or more. We will reach out to PCP. Her friend who brought her spoke about her concerns. The pt does not have any immediate family close by F/U 2-3 months F/U 6-8 weeks Orders: Orders XR chest 2V 03/01/25 J84.10 - Pulmonary fibrosis, unspecified Medications: New hydroxychloroquine (Plaquenil) 200 mg PO DAILY 30 tabs 6RF 30 days Refilled prednisone 10 mg PO DAILY 30 tabs 5RF 30 days Coding Level of Care Code Est Pt Level 5 (56846) Diagnoses Pulmonary fibrosis J84.10 Simple chronic bronchitis J41.0 COPD type: chronic bronchitis Chronic bronchitis type: simple Impaired memory R41.3 Sjogren's syndrome with lung involvement M35.02 Sjogren organ or system involvement: lung involvement Time Spent (min) 60
== END 2025-03-01 14:33 | disposition home or self-care (01) ==
LOC: HO.HPS 13:51
PROVIDERS: Visit Provider Hospitalist
DX: J84.10 Pulmonary fibrosis, unspecified (principal); J41.0 Simple chronic bronchitis; R41.3 Other amnesia; M35.02 Sjogren syndrome with lung involvement
CPT/HCPCS: 99215